=== PATIENT | male | born 1945 | race Caucasian/White ===

== ENCOUNTER 2020-11-16 16:46 | Observation (INO) | payer MEDICARE, BC ==
[2020-11-16 17:28] LABS: #Eosinphils 0.2 10x3/uL (0.0-0.5); #Monocytes 0.6 10x3/uL (0.0-1.1); #Neutrophils 2.4 10x3/uL (1.5-8.4); %Basophils 0.4 % (0.0-2.0); %Eosinophils 3.5 % (0.0-6.0); %Lymphocytes 34.7 % (18.0-47.0); %Monocytes 12.2 % (0.0-10.0); Hemoglobin 13.7 g/dL (13.5-17.5); Mean Corpuscular HGB CONC 33.7 g/dL (32.0-36.0); Mean Corpuscular Hemoglobin 30.7 pg (27.0-33.0); Mean Corpuscular Volume 91.3 fl (81.2-95.1); Mean Platelet Volume 9.7 fl (7.4-10.4); Platelet Count 276 10x3/uL (150-450); RBC Distribution Width 12.2 % (11.5-14.5); Red Blood Cell (RBC) Count 4.46 10x6/uL (4.32-5.72); White Blood Cell (WBC) Count 4.9 10x3/uL (3.5-10.5)
[2020-11-16 17:49] LABS: ALT (SGPT) 18 U/L (8-55); AST (SGOT) 30 U/L (5-34); Albumin 4.3 g/dL (3.4-4.8); Alkaline Phosphatase 64 U/L (40-110); Anion Gap 12 mmol/L (10-20); BUN (Urea Nitrogen) 18 mg/dL (8.4-25.7); Bilirubin, Total 0.4 mg/dL (0.2-1.2); Calc. Creatinine Clearance 0 mL/min (70-130); Calcium 9.2 mg/dL (7.8-10.44); Carbon Dioxide 26 mmol/L (23-31); Chloride 103 mmol/L (98-107); Globulin 2.8 g/dL (2.4-3.5); Glucose 204 mg/dL (83-110); Lipase 149 U/L (8-78); Potassium 3.9 mmol/L (3.5-5.1); Protein, Total 7.1 g/dL (5.8-8.1); Sodium 137 mmol/L (136-145)
[2020-11-16] MEDS ORDERED: Aspirin 325 MG TAB ONE ×2 (18:19→18:28)
[2020-11-16] MEDS ORDERED: Calcium Carbonate 500 MG ChewTAB PO PRN (22:50)
[2020-11-16] MEDS ORDERED: Ondansetron PF 4 MG/2 ML Vial IVP PRN (22:50)
[2020-11-16] MEDS ORDERED: Zolpidem Tartrate 5 MG TAB PO PRN (22:50)
[2020-11-16] MEDS ORDERED: HYDROcodone/Acetaminophen 5/325 mg Tablet PO PRN ×2 (22:50)
[2020-11-16] MEDS ORDERED: Guaifenesin DM 100-10/5 ML UDCUP PO PRN (22:50)
[2020-11-16] MEDS ORDERED: Acetaminophen 325 MG TAB PO PRN (22:50)
[2020-11-16] MEDS ORDERED: Senokot S 8.6-50 MG TAB PO PRN (22:50)
[2020-11-16] MEDS ORDERED: Sodium Chloride 0.9% 500 ML IV SCH (23:00)
[2020-11-17 02:12] VITALS: BMI 27.5
[2020-11-17] MEDS ORDERED: Aspirin 81 mg Enteric Coated Tablet PO SCH (09:00)
[2020-11-17] MEDS ORDERED: Famotidine 20 MG TAB PO SCH (09:00)
[2020-11-17] MEDS ORDERED: Non-Formulary Medication 1 EACH (Brimonidine Tartrate/Timolol [Combigan 0.2%-0.5% Eye Drop EA EYE SCH (09:00)
[2020-11-17] MEDS ORDERED: Enoxaparin Sodium 40 MG/0.4 ML SYRINGE SC SCH (09:00)
[2020-11-17] MEDS ORDERED: Brimonidine Tartrate 0.2% Ophth Soln 5 ml Bottle EA EYE SCH (09:00)
[2020-11-17] MEDS ORDERED: Latanoprost 0.005% Ophth Soln 2.5 ml Bottle EA EYE SCH (09:00)
[2020-11-17] MEDS ORDERED: Timolol 0.5% Ophth Soln 5 ml Bottle EA EYE SCH (09:00)
[2020-11-17] MEDS ORDERED: Dextroamphetamine/Amphetamine [Adderall] 10 MG Tablet PO SCH (09:00)
[2020-11-17 11:24] LABS: Hemoglobin A1c 5.4 % (4.0-6.0)
[2020-11-17 11:27] VITALS: BP 125/73; TEMP 98.2
[2020-11-17 20:35] LABS: SARS-CoV-2 PCR by NAA Not Detected (NotDetected)
== END 2020-11-17 13:00 | disposition home or self-care (01) ==
LOC: CSHERS 16:46 → CSHTELE 23:56
PROVIDERS: ADMIT Student in an Organized Health Care Education/Training Program; ATTEND Internal Medicine
DX: R07.9 Chest pain, unspecified (principal); R06.00 Dyspnea, unspecified; F41.9 Anxiety disorder, unspecified; F90.9 Attention-deficit hyperactivity disorder, unspecified type; M17.0 Bilateral primary osteoarthritis of knee; R73.9 Hyperglycemia, unspecified; R00.1 Bradycardia, unspecified; Z20.822 Contact with and (suspected) exposure to COVID-19; Z79.899 Other long term (current) drug therapy
CPT/HCPCS: 71045; 76705; 80053; 83036; 83690 ×2; 83880; 84484 ×3; 85025; 85379; 93005 ×2; 93306; 94760; 99285; G0378 ×2; U0003; U0005; 36415; 87635; 93010

== ENCOUNTER 2022-03-20 11:55 | Outpatient (CLI) | payer MEDICARE, BC ==
[2022-03-20] MEDS ORDERED: Iopamidol 300 61% 100 ML VIAL FS ONE (14:48)
== END 2022-03-20 11:56 | disposition home or self-care (01) ==
LOC: CSHCT 11:55
PROVIDERS: ATTEND Physician Assistant Medical
DX: R19.7 Diarrhea, unspecified (principal); R15.9 Full incontinence of feces; R15.2 Fecal urgency; K57.30 Diverticulosis of large intestine without perforation or abscess without bleeding; K76.89 Other specified diseases of liver; D17.5 Benign lipomatous neoplasm of intra-abdominal organs
CPT/HCPCS: 74177; 82565; Q9967

== ENCOUNTER 2024-06-26 15:39 | Outpatient (CLI) | payer MEDICARE | END 2024-06-26 15:40 | disposition home or self-care (01) | LOC: CSHWCC 15:39 | PROVIDERS: ATTEND Nurse Practitioner Family | DX: T81.329D Deep disruption or dehiscence of operation wound, unspecified, subsequent encounter (principal) | CPT/HCPCS: 11042; 97605 ==

== ENCOUNTER 2024-07-03 15:20 | Outpatient (CLI) | payer MEDICARE | END 2024-07-03 15:21 | disposition home or self-care (01) | LOC: CSHWCC 15:20 | PROVIDERS: ATTEND Nurse Practitioner Family | DX: T81.329D Deep disruption or dehiscence of operation wound, unspecified, subsequent encounter (principal) | CPT/HCPCS: 11042; G0463; 99212 ==

== ENCOUNTER 2024-07-10 14:54 | Outpatient (CLI) | payer MEDICARE | END 2024-07-10 14:55 | disposition home or self-care (01) | LOC: CSHWCC 14:54 | PROVIDERS: ATTEND Nurse Practitioner Family | DX: T81.329D Deep disruption or dehiscence of operation wound, unspecified, subsequent encounter (principal) ==

== ENCOUNTER 2024-07-17 14:53 | Outpatient (CLI) | payer MEDICARE | END 2024-07-17 14:54 | disposition home or self-care (01) | LOC: CSHWCC 14:53 | PROVIDERS: ATTEND Nurse Practitioner Family | DX: T81.329D Deep disruption or dehiscence of operation wound, unspecified, subsequent encounter (principal) | CPT/HCPCS: 99212; G0463 ==

== ENCOUNTER 2024-08-14 12:46 | Outpatient (CLI) | payer MEDICARE | END 2024-08-14 12:47 | disposition home or self-care (01) | LOC: CSHRAD 12:46 | PROVIDERS: ATTEND Specialist | DX: S36.533A Laceration of sigmoid colon, initial encounter (principal) | CPT/HCPCS: 74280 ==